=== PATIENT | male | born 1980 | race Caucasian/White ===

== ENCOUNTER 2020-03-01 21:46 | Inpatient (IN) | payer BC, OTHER ==
[2020-03-01] MEDS ORDERED: Morphine 4 MG/ML VIAL ONE (22:00)
[2020-03-01] MEDS ORDERED: Acetaminophen 325 MG TAB PO PRN (23:34)
[2020-03-01] MEDS ORDERED: cloNIDine 0.1 MG TAB PO PRN (23:34)
[2020-03-01] MEDS ORDERED: Promethazine HCl 12.5 MG in Sodium Chloride 0.9% 50 ML IVPB PRN (23:34)
[2020-03-01] MEDS ORDERED: Ondansetron PF 4 MG/2 ML Vial IVP PRN (23:34)
[2020-03-01] MEDS ORDERED: Guaifenesin DM 100-10/5 ML UDCUP PO PRN (23:34)
[2020-03-01] MEDS ORDERED: Labetalol HCl 100 MG/20 ML VIAL SLOW IVP PRN (23:34)
[2020-03-01] MEDS ORDERED: hydrALAZINE 20 MG/ML VIAL SLOW IVP PRN (23:34)
--- NOTE | 2020-03-01 23:44 | PDOC.HHP ---
Hospitalist HPI - History of Present Illness Tooth pain, jaw swelling History of Present Illness: Patient is a 39 year old male with no PMH sent here from [place] for 1 week of L lower mandible swelling and pain, patient reports tooth pain in L lower mandible x 6 days and jaw swelling x 4 days. He went to ED 3 days ago and got abx, then went to a dentist today Dr Nascimento and was not improving. Currently he can talk and manage secretions, denies SOB but cheek on L is so swollen that he can not open his mouth all the way. No distress. He had a CT scan in [place] and was diagnosed with odontogenic abscess, OMFS was consulted and agreed to place patient on schedule tomorrow, patient transferred here for further care. In ED, vitals with tachypnea, T 101.2. OMFS who talked with Ed was Dr Maier. Hospitalist ROS - Review of Systems Constitutional: reports: fever, chills. denies: sweats, weakness, malaise, other Eyes: denies: pain, vision change, conjunctivae inflammation, eyelid inflammation, redness, other ENT: reports: mouth pain, mouth swelling, other (tooth pain). denies: ear pain, ear discharge, nose pain, nose discharge, nose congestion, throat pain, throat swelling Respiratory: denies: cough, dry, shortness of breath, hemoptysis, SOB with excertion, pleuritic pain, sputum, wheezing, other Cardiovascular: denies: chest pain, palpitations, orthopnea, paroxysmal noc. dyspnea, edema, light headedness, other Gastrointestinal: denies: nausea, vomiting, abdominal pain, diarrhea, constipa tion, melena, hematochezia, other Genitourinary: denies: dysuria, frequency, incontinence, hematuria, retention, other Musculoskeletal: denies: neck pain, shoulder pain, arm pain, back pain, hand pain, leg pain, foot pain, other Skin: denies: rash, lesions, ronen, bruising, other Neurological: denies: weakness, numbness, incoordination, change in speech, confusion, seizures, other All other systems reviewed; all pertinent +/- noted in HPI/Subj - Medication Medications: reviewed, see ED documents Hospitalist History - Past Medical History Other Medical History: no significant pmh - Past Surgical History Past Surgical History: reports: no pertinent history - Family History Family History: reports: no pertinent history - Social History Smoking Status: Never smoker Alcohol: reports: Rare Drugs: reports: none - Exam General Appearance: NAD, awake alert Eye: PERRL, anicteric sclera ENT: normocephalic atraumatic, no oropharyngeal lesions, moist mucosa ENT - other findings: L cheek swollen, mouth minimally able to open, no distress Neck: supple, symmetric, no JVD, no thyromegaly, no lymphadenopathy, no carotid bruit Neck - other findings: managing secretions Heart: RRR, no murmur, no gallops, no rubs, normal peripheral pulses Respiratory: CTAB, no wheezes, no rales, no ronchi, normal chest expansion, no tachypnea, normal percussion Respiratory - other findings: no sob, normal WOB, no stridor Gastrointestinal: soft, non-tender, non-distended, normal bowel sounds, no palpable masses, no hepatomegaly, no splenomegaly, no bruit Extremities: no cyanosis, no clubbing, no edema Skin: normal turgor, no lesions, no rashes Neurological: cranial nerve grossly intact, normal sensation to touch, no weakness, no focal deficits, no new deficit Musculoskeletal: normal tone, normal strength, no muscle wasting Psychiatric: normal affect, normal behavior, A&O x 3 Hospitalist Results - Labs Additional comment: VITAL SIGNS Jelly Mar 01, 2020 22:48 EVA Boyd Daniel BP: 141/83 Pulse: 82 Resp: 20 Temp: 101.2 (Oral) Pain: 7 O2 sat: 99 on (Room Air) Time: 03/01/2020 22:48. ED documents, labs, imaging reports reviewed Hospitalist H&P A/P - Plan Plan: Patient is a 39 year old male with no PMH sent here from [place] for 1 week of L lower mandible swelling and pain. # posterior L mandicular molar abscess # sepsis - Tmax 101.2, WBC 13, source odontogenic infection patient reports tooth pain in L lower mandible x 6 days and jaw swelling x 4 days. He went to ED 3 days ago and got abx, then went to a dentist today Dr Nascimento and was not improving. Currently he can talk and manage secretions, denies SOB but cheek on L is so swollen that he can not open his mouth all the way. No distress. He had a CT scan in [place] and was diagnosed with odontogenic abscess, OMFS was consulted and agreed to place patient on schedule tomorrow, patient transferred here for further care. In ED, vitals with tachypnea, T 101.2. OMFS who talked with Ed was Dr Maier. - admit to floor - consult OMFS Dr Maier, discussed with him by ED - NPO - PRN pain meds - IVF - follow blood cultures drawn in [place] - start clindamycin (got vanc/zosyn in [place]) - speech consult # hyperglycemia - not dx w/ dm in past, may be newly diagnosed now - ssi - a1c DVT/GI prophylaxis full code
[2020-03-01] MEDS ORDERED: Sodium Chloride 0.9% 1,000 ML IV SCH (23:45)
[2020-03-01] MEDS ORDERED: Electrolyte Replacement Protoc 1 EACH EACH FS SCH (23:45)
[2020-03-01] MEDS ORDERED: Dextrose 5% in Water 1,000 ML IV PRN (23:52)
[2020-03-01] MEDS ORDERED: HumaLOG 300 UNITS/3 ML VIAL SC PRN (23:52)
[2020-03-01] MEDS ORDERED: Dextrose 50% Abboject 50 ML SYRINGE SLOW IVP PRN (23:52)
[2020-03-02] MEDS: HYDROcodone/Acetaminophen 5/325 mg Tablet PO PRN ×4 (00:02→18:14)
[2020-03-02] MEDS: Morphine 2 MG/ML VIAL SLOW IVP PRN ×6 (00:03→21:16)
[2020-03-02] MEDS ORDERED: Clindamycin/D5W 600 MG in Premix Bag 1 BAG IVPB SCH ×2 (01:00→06:00)
[2020-03-02] MEDS: Sodium Chloride 0.9% 1,000 ML IV SCH ×4 (01:01→21:18)
[2020-03-02 05:08] LABS: #Lymphocytes 0.6 thou/uL (1.20-3.40); #Monocytes 1.2 thou/uL (0.11-0.59); #Neutrophils 10.2 thou/uL (1.40-6.50); %Basophils 0.1 % (0.0-1.0); %Eosinophils 0.1 % (0.0-10.0); %Lymphocytes 5.1 % (21.0-51.0); %Monocytes 10.1 % (0.0-10.0); %Neutrophils 84.7 % (42.0-75.0); Hemoglobin 12.3 g/dL (14.0-18.0); Mean Corpuscular HGB CONC 35.4 g/dL (32.0-36.0); Mean Corpuscular Volume 93.2 fL (78.0-98.0); Mean Platelet Volume 8.5 fL (7.4-10.4); Platelet Count 181 thou/uL (130-400); RBC Distribution Width 10.9 % (11.5-14.5); Red Blood Cell (RBC) Count 3.72 mill/uL (4.70-6.10); White Blood Cell (WBC) Count 12.1 thou/uL (4.8-10.8)
[2020-03-02 05:29] LABS: ALT (SGPT) 25 U/L (8-55); AST (SGOT) 25 U/L (5-34); Albumin 3.5 g/dL (3.5-5.0); Alkaline Phosphatase 44 U/L (40-110); Bilirubin, Direct 0.4 mg/dL (0.1-0.3); Bilirubin, Total 0.8 mg/dL (0.2-1.2)
[2020-03-02 05:30] LABS: Anion Gap 13 mmol/L (10-20); BUN (Urea Nitrogen) 6 mg/dL (8.9-20.6); Calc. Creatinine Clearance 171 mL/min (70-130); Calcium 8.2 mg/dL (7.8-10.44); Carbon Dioxide 22 mmol/L (22-29); Chloride 105 mmol/L (98-107); Estimated GFR-MDRD Greater than 90; Glucose 126 mg/dL (70-105); Magnesium 1.7 mg/dL (1.6-2.6); Potassium 3.7 mmol/L (3.5-5.1); Sodium 136 mmol/L (136-145)
[2020-03-02] MEDS ORDERED: Magnesium 2 GM/50 ML 2 GM in Premix Bag 1 BAG IVPB SCH (06:30)
[2020-03-02] MEDS ORDERED: Famotidine 20 MG TAB PO SCH (09:00)
[2020-03-02] MEDS ORDERED: Polyethylene Glycol 3350 17 GM Packet PO SCH (09:00)
[2020-03-02] MEDS: Ampicillin/Sulbactam 3 GM in Sodium Chloride 0.9% 100 ML IVPB SCH ×3 (11:08→21:18)
[2020-03-02 12:06] LABS: SARS-CoV-2 MS2 Positive; SARS-CoV-2 N Gene Negative; SARS-CoV-2 S Gene Negative; SARS-CoV-2 by NAA Not Detected (NotDetected); SARS-CoV-2 orf1ab Negative
[2020-03-02] MEDS ORDERED: Fentanyl 100 MCG/2 ML VIAL ONE ×4 (13:25→16:06)
[2020-03-02 13:40] VITALS: BMI 25.7
[2020-03-02] MEDS ORDERED: Bupivacaine 0.25% HCL 30 ML VIAL ONE (13:49)
[2020-03-02] MEDS ORDERED: Lidocaine 1% w/Epinephrine 1:100K 20 ML VIAL ONE (13:49)
[2020-03-02] MEDS ORDERED: Hydrocortisone 1% Cream 30 GM TUBE ONE (13:49)
[2020-03-02] MEDS ORDERED: Chlorhexidine Gluconate 15 ML UDCUP SSP ONE (13:49)
--- NOTE | 2020-03-02 14:10 | PDOC.HOSPP ---
- Subjective Encounter Date: 03/02/20 Encounter Time: 10:00 Subjective: no overnight events. this morning, compalins of conitnued though improved left facial and submandibular pain, inability to open mouth, and extension of swelling down the neck. Pending I&D - Objective Vital Signs & Weight: Vital Signs (12 hours) Temp Pulse Resp BP Pulse Ox 03/02/20 11:04 98.8 F 82 14 117/75 98 03/02/20 07:14 100.2 F H 80 18 115/70 97 Weight Admit Weight 171 lb Weight 169 lb Result Diagrams: 03/02/20 04:54 03/02/20 04:54 Additional Labs: Accuchecks 03/02/20 03/02/20 11:12 06:57 POC Glucose 126 H 121 H Hospitalist ROS - Review of Systems Constitutional: reports: chills, sweats ENT: reports: mouth pain, mouth swelling Respiratory: denies: cough, dry, shortness of breath Cardiovascular: denies: chest pain, palpitations, orthopnea Gastrointestinal: denies: nausea, vomiting, abdominal pain - Medication Medications: Active Medications Generic Name Dose Route Start Last Admin Trade Name Freq PRN Reason Stop Dose Admin Acetaminophen 650 mg 03/01/20 23:34 03/02/20 07:37 Acetaminophen 325 Mg Tab PO 650 mg Q4H PRN Administration Headache/Fever/Mild Pain (1-3) Hydrocodone Bitart/Acetaminophen 1 tab 03/01/20 23:34 03/02/20 09:43 Hydrocodone/Acetaminophen 5/325 Mg Tablet PO 1 tab Q4H PRN Administration Moderate Pain (4-6) Famotidine 20 mg 03/02/20 09:00 03/02/20 10:52 Famotidine 20 Mg Tab PO Not Given BID CRESENCIO Sodium Chloride 1,000 mls @ 125 mls/hr 03/02/20 00:15 03/02/20 10:51 Normal Saline 0.9% IV Not Given .Q8H CRESENCIO Ampicillin Sodium/Sulbactam 100 mls @ 200 mls/hr 03/02/20 09:00 03/02/20 11:08 Sodium 3 gm/ Sodium Chloride IVPB 100 mls 0300,0900,1500,2100 CRESENCIO Administration Morphine Sulfate 2 mg 03/01/20 23:34 03/02/20 09:43 Morphine 2 Mg/Ml Vial SLOW IVP 2 mg Q3H PRN Administration Moderate to Severe Pain (4-10) Ondansetron HCl 4 mg 03/01/20 23:34 03/02/20 06:04 Ondansetron Pf 4 Mg/2 Ml Vial IVP 4 mg Q6H PRN Administration Nausea/Vomiting, use 1st Polyethylene Glycol 17 gm 03/02/20 09:00 03/02/20 09:24 Polyethylene Glycol 3350 17 Gm Packet PO Not Given DAILY CRESENCIO Sodium Chloride 10 ml 03/02/20 09:00 03/02/20 10:52 Flush - Normal Saline 10 Ml Syringe IVF Not Given Q12HR CRESENCIO - Exam General Appearance: NAD, awake alert ENT: moist mucosa ENT - other findings: cant open mouth even with tounge deperssor Neck: no JVD Neck - other findings: left mandibular and submandibular swelling and submandibular swelling Heart: RRR, no murmur, no gallops, no rubs Respiratory: CTAB, no wheezes, no rales, no ronchi Gastrointestinal: soft, non-tender, non-distended, normal bowel sounds Extremities: no edema Psychiatric: normal affect, normal behavior, A&O x 3 Hosp A/P - Plan #molar periodontal abscess -continue unasyn -I&D pending -if improves by tomorrow, will change to oral and possibly discharge full code GI PPx: no Ix DVT PPx: lovenox
[2020-03-02] MEDS ORDERED: Succinylcholine Chloride 20 MG/ML 10 ml SYRINGE FS ONE (14:11)
[2020-03-02] MEDS ORDERED: PROPOFOL 200 MG/20 ML VIAL ONE (14:11)
[2020-03-02] MEDS ORDERED: Dexamethasone 20 MG/5 ML VIAL ONE (14:11)
[2020-03-02] MEDS ORDERED: Lidocaine 1% PF 5 ML VIAL ONE (14:11)
[2020-03-02] MEDS ORDERED: Rocuronium Bromide 10 MG/ML (10ML VIAL) ONE (14:11)
[2020-03-02] MEDS ORDERED: Ondansetron PF 4 MG/2 ML Vial ONE (14:11)
[2020-03-02] MEDS ORDERED: Glycopyrrolate 0.2 MG/ML 5 ML SYRINGE ONE (14:11)
[2020-03-02] MEDS ORDERED: Labetalol HCl 100 MG/20 ML VIAL ONE (15:25)
[2020-03-02] MEDS ORDERED: Morphine 4 MG/ML VIAL ONE (16:15)
--- NOTE | 2020-03-02 19:59 | CON ---
DATE OF CONSULTATION: 03/02/2020 HISTORY OF PRESENT ILLNESS: This is a 39-year-old male with reported approximately 1-week history of left lower jaw pain and swelling. He reports that he went to an outside ER approximately 3 days ago, where prescription antibiotics was administered, for which the patient saw no improvement. He saw his dentist yesterday, who recommended reporting to the emergency room due to the severity of the patient's infection. CT scan at [facility] revealed odontogenic abscess associated with tooth #18 and left posterior mandible. The patient was transferred to [facility] for surgical intervention, for which Oral Surgery was consulted. PAST MEDICAL HISTORY: Negative. MEDICATIONS: None. SOCIAL HISTORY: Negative for tobacco. Rare alcohol. Denies recreational drugs. PAST SURGICAL HISTORY: Reports incision and drainage of staph infection of the knee. REVIEW OF SYSTEMS: The patient reports a 10/10 pain associated with his left neck and jaw, difficulty swallowing due to pain, difficulty opening his mouth. Otherwise, review of symptoms within normal limits. PHYSICAL EXAMINATION: VITAL SIGNS: Stable. Blood pressure 136/75, pulse 82, respirations 18, temperature max is 101.2, and oxygen saturation 99% on room air. GENERAL: The patient is sitting in bed, no acute distress. Awake, alert, oriented. HEENT: Eyes; pupils are equal, round, and reactive to light. Extraocular movements intact. Visual acuity grossly intact. Ears and nose within normal limits. No acute findings. Intraoral exam limited secondary to the patient trismus and pain. Tenderness to palpation along the left mandibular vestibule. Floor of mouth cannot be assessed, but the patient reports his tongue has full range of motion. The floor of mouth is soft. There is palpable edema along the lateral aspect of the left mandibular body and ramus. Mild induration in the inferior border. NECK: His neck inferiorly on the left side is supple with no erythema. CT Neck: Large 3.5cm fluid collection within the left biology internship and submandibular spaces associated with carious tooth #18 which has a large periapical radiolucency with perforation through the lingual cortex ASSESSMENT: This is a 39-year-old male with odontogenic abscess associated with tooth #18. PLAN: The patient will be taken to the operating room for extraction of indicated teeth and incision and drainage of the abscess under general anesthesia. The risks, benefits, and alternatives of the procedure were discussed with the patient in detail. Questions were sought and answered. Informed consent was obtained. Continue IV antibiotics and supportive therapy and follow cultures that will be obtained during the surgery. Job ID: [id number] MTDD
--- NOTE | 2020-03-02 20:41 | OP ---
DATE OF PROCEDURE: 03/02/2020 PREOPERATIVE DIAGNOSES: 1. Left multi needle machine operator space abscess. 2. Left submandibular abscess. 3. Dental caries of teeth #15 and #18. POSTOPERATIVE DIAGNOSES: 1. Left multi needle machine operator space abscess. 2. Left submandibular abscess. 3. Dental caries of teeth #15 and #18. PROCEDURES PERFORMED: 1. Incision and drainage of left multi needle machine operator and submandibular spaces. 2. Surgical extraction of tooth #15. 3. Simple extraction of tooth #18. ANESTHESIA: General nasoendotracheal anesthesia. INDICATIONS FOR PROCEDURE: This is a 39-year-old male with approximately 1-week history of left-sided jaw pain and facial swelling for which a CT scan revealed odontogenic abscess and a mass until ER for which the patient was transferred to [place] for surgical and medical intervention. DESCRIPTION OF PROCEDURE: The patient was met in the preoperative holding area. Risks, benefits, alternatives of procedure were discussed in detail. Questions were sought and answered. Informed consent was obtained. The patient was transferred to the operating room by Anesthesia Nursing to the OR table, where a safety belt was secured. ASA monitors were attached and the patient was noted to have stable vital signs. IV induction by Anesthesia with nasoendotracheal intubation x1 without complication. The nasoendotracheal tube was secured in a standard head wrap fashion. The patient was prepped and draped in a standard fashion and a time-out was performed. The procedure began by thoroughly suctioning the oropharynx and a moistened Ray[place]John[place] throat pack was placed. Peridex mouth rinse was performed. A 15 blade was used for a sulcular incision around teeth #18 and #19. Roots of #18 were sectioned with a 703 bur and elevator extraction was performed of tooth #18. Then, a 15 blade was used for 1.5 cm horizontal incision below the mucogingival junction in the left posterior mandible with subperiosteal dissection delivering extensive purulence from the left multi needle machine operator space. Further dissection below the inferior border revealed additional purulence from the submandibular space. Subperiosteal dissection along the lingual aspect of the mandible delivered no purulence. Copious irrigation of the wound was performed with normal saline. A quarter-inch Jennie drain was placed and secured with one 3-0 nylon suture. 703 was used to section the roots of carious tooth #15 and elevated with ostectomy and elevator and rongeur extraction was performed of tooth #15. The oropharynx was irrigated and thoroughly suctioned. The Ray-Johnathon throat pack was removed. A gauze pack was placed for hemostasis and this concluded the procedure. The patient was extubated in the room, returned to PACU in stable condition. FLUID: See Anesthesia records. ESTIMATED BLOOD LOSS: 30 mL. DRAINS: Left multi needle machine operator space quarter-inch [place]. SPECIMENS: Wound cultures were sent for culture and sensitivity. IMPLANTS: None. COMPLICATIONS: None. COUNTS: Needle and sponge count verified as correct. Job ID: [id number]
[2020-03-02] MEDS: Chlorhexidine Gluconate 15 ML UDCUP SSP SCH (21:19)
[2020-03-02] MEDS: Enoxaparin Sodium 40 MG/0.4 ML SYRINGE SC SCH (21:19)
[2020-03-03] MEDS: HYDROcodone/Acetaminophen 5/325 mg Tablet PO PRN ×5 (00:43→21:07)
[2020-03-03] MEDS: Morphine 2 MG/ML VIAL SLOW IVP PRN ×2 (00:44→03:43)
[2020-03-03] MEDS: Ampicillin/Sulbactam 3 GM in Sodium Chloride 0.9% 100 ML IVPB SCH ×4 (03:36→20:02)
--- NOTE | 2020-03-03 08:38 | PRG ---
DATE OF SERVICE: 03/03/2020 SUBJECTIVE: The patient is sitting in bed comfortably watching TV. Reports significant improvement in jaw pain, swallowing, and mouth opening. The patient states "I feel much better today." Pain is controlled with medications and tolerating p.o. intake. OBJECTIVE: VITAL SIGNS: Temperature 97.9, pulse 76, respirations 14, oxygen saturation 97% on room air, blood pressure 105/66. GENERAL: The patient is in no acute distress. HEENT: Improvement in left buccal edema. The patient's interincisal opening has significantly improved approximately 20 mm today. Tongue, full range of motion. Floor of mouth is soft. [place] drain is intact. No purulent secretions from the intraoral wound. On palpation, extraction site is hemostatic. LABORATORY DATA: No new labs. Cultures pending. ASSESSMENT: Postop day #1, status post incision and drainage of left catalyst operator space and submandibular abscess with extraction of teeth #15 and #18. The patient is doing very well clinically. PLAN: Continue antibiotics and supportive therapy. With the patient's continued improvement, likely remove drain tomorrow and potentially ready for discharge to home. We will continue to follow. Job ID: [id number]
[2020-03-03] MEDS: Chlorhexidine Gluconate 15 ML UDCUP SSP SCH ×2 (08:53→20:02)
[2020-03-03] MEDS: Sodium Chloride 0.9% 1,000 ML IV SCH ×2 (08:55→16:17)
--- NOTE | 2020-03-03 10:10 | PDOC.HOSPP ---
- Subjective Encounter Date: 03/03/20 Encounter Time: 10:00 Subjective: overnight, had extraction of molar and drainage of abscess. This morning, feeling better, pain resolved, PO tolerant. Has no complaints. - Objective Vital Signs & Weight: Vital Signs (12 hours) Temp Pulse Resp BP Pulse Ox 03/03/20 07:52 97.9 F 76 14 105/66 97 03/03/20 04:38 97.9 F 87 16 109/69 96 03/02/20 23:32 98.3 F 76 17 104/59 L 97 Weight Admit Weight 171 lb Weight 169 lb I&O: 03/02/20 03/03/20 03/04/20 06:59 06:59 06:59 Intake Total 3900 Output Total 2100 Balance 1800 Result Diagrams: 03/02/20 04:54 03/02/20 04:54 Additional Labs: Accuchecks 03/03/20 03/02/20 03/02/20 05:50 23:43 18:12 POC Glucose 121 H 140 H 169 H 03/02/20 11:12 POC Glucose 126 H Hospitalist ROS - Review of Systems Constitutional: denies: chills, sweats ENT: reports: mouth pain, mouth swelling. denies: throat pain, throat swelling Respiratory: denies: cough, dry, shortness of breath Cardiovascular: denies: chest pain, palpitations Gastrointestinal: denies: nausea, vomiting - Medication Medications: Active Medications Generic Name Dose Route Start Last Admin Trade Name Freq PRN Reason Stop Dose Admin Acetaminophen 650 mg 03/01/20 23:34 03/02/20 07:37 Acetaminophen 325 Mg Tab PO 650 mg Q4H PRN Administration Headache/Fever/Mild Pain (1-3) Hydrocodone Bitart/Acetaminophen 1 tab 03/01/20 23:34 03/03/20 09:05 Hydrocodone/Acetaminophen 5/325 Mg Tablet PO 1 tab Q4H PRN Administration Moderate Pain (4-6) Chlorhexidine Gluconate 15 ml 03/02/20 21:00 03/03/20 08:53 Chlorhexidine Gluconate 15 Ml Udcup SSP 15 ml BID CRESENCIO Administration Enoxaparin Sodium 40 mg 03/02/20 21:00 03/02/20 21:19 Enoxaparin Sodium 40 Mg/0.4 Ml Syringe SC 40 mg 2100 CRESENCIO Administration Sodium Chloride 1,000 mls @ 125 mls/hr 03/02/20 00:15 03/03/20 08:55 Normal Saline 0.9% IV 1,000 mls .Q8H CRESENCIO Administration Ampicillin Sodium/Sulbactam 100 mls @ 200 mls/hr 03/02/20 09:00 03/03/20 08:53 Sodium 3 gm/ Sodium Chloride IVPB 100 mls 0300,0900,1500,2100 CRESENCIO Administration Morphine Sulfate 2 mg 03/01/20 23:34 03/03/20 03:43 Morphine 2 Mg/Ml Vial SLOW IVP 2 mg Q3H PRN Administration Moderate to Severe Pain (4-10) Ondansetron HCl 4 mg 03/01/20 23:34 03/02/20 06:04 Ondansetron Pf 4 Mg/2 Ml Vial IVP 4 mg Q6H PRN Administration Nausea/Vomiting, use 1st Sodium Chloride 10 ml 03/02/20 09:00 03/03/20 08:54 Flush - Normal Saline 10 Ml Syringe IVF 10 ml Q12HR CRESENCIO Administration - Exam General Appearance: NAD, awake alert ENT - other findings: right facial swelling improved. Able to open mouth unlike yesterday Neck: no JVD Heart: RRR, no murmur, no gallops, no rubs Respiratory: CTAB, no wheezes, no rales, no ronchi Gastrointestinal: soft, non-tender, non-distended, normal bowel sounds Extremities: no edema Psychiatric: normal affect, normal behavior, A&O x 3 Hosp A/P - Plan #molar periodontal abscess -POD 1 s/p I&D; drain in place -continue unasyn -pending culture; change to oral meds (03/04), possible DC depending on drainage full code GI PPx: no Ix DVT PPx: lovenox
[2020-03-03] MEDS: Enoxaparin Sodium 40 MG/0.4 ML SYRINGE SC SCH (20:02)
[2020-03-03] MEDS: Famotidine 20 MG TAB PO SCH (20:16)
[2020-03-04] MEDS: HYDROcodone/Acetaminophen 5/325 mg Tablet PO PRN ×4 (01:24→13:02)
[2020-03-04] MEDS: Sodium Chloride 0.9% 1,000 ML IV SCH (01:25)
[2020-03-04] MEDS: Ampicillin/Sulbactam 3 GM in Sodium Chloride 0.9% 100 ML IVPB SCH ×2 (03:58→08:55)
[2020-03-04 05:28] LABS: #Eosinphils 0.1 thou/uL (0.0-0.7); #Lymphocytes 1.8 thou/uL (1.20-3.40); #Monocytes 0.7 thou/uL (0.11-0.59); #Neutrophils 4.2 thou/uL (1.40-6.50); %Basophils 0.2 % (0.0-1.0); %Eosinophils 0.8 % (0.0-10.0); %Monocytes 10.3 % (0.0-10.0); %Neutrophils 62.7 % (42.0-75.0); Hemoglobin 13.4 g/dL (14.0-18.0); Mean Corpuscular HGB CONC 35.6 g/dL (32.0-36.0); Mean Corpuscular Hemoglobin 33.1 pg (27.0-31.0); Mean Corpuscular Volume 93.2 fL (78.0-98.0); Mean Platelet Volume 8.4 fL (7.4-10.4); Platelet Count 266 thou/uL (130-400); RBC Distribution Width 11.1 % (11.5-14.5); Red Blood Cell (RBC) Count 4.04 mill/uL (4.70-6.10); White Blood Cell (WBC) Count 6.7 thou/uL (4.8-10.8)
[2020-03-04] MEDS: Famotidine 20 MG TAB PO SCH (08:55)
[2020-03-04] MEDS: Chlorhexidine Gluconate 15 ML UDCUP SSP SCH (08:56)
[2020-03-04 15:40] VITALS: BP 120/79; TEMP 98.6
== END 2020-03-04 16:10 | disposition home or self-care (01) | DRG 854 ==
LOC: ERS 21:46 → SURG B 22:59
PROVIDERS: ADMIT Internal Medicine; ATTEND Internal Medicine
PROC: 0J910ZZ Drainage of Face Subcutaneous Tissue and Fascia, Open Approach (ICD-10-PCS; principal; 2020-03-02)
PROC: 0CDXXZ1 Extraction of Lower Tooth, Multiple, External Approach (ICD-10-PCS; 2020-03-02)
DX: A41.9 Sepsis, unspecified organism (principal); K12.2 Cellulitis and abscess of mouth; M27.2 Inflammatory conditions of jaws; Z20.828 Contact with and (suspected) exposure to other viral communicable diseases; R25.2 Cramp and spasm; R73.9 Hyperglycemia, unspecified; K02.9 Dental caries, unspecified
CPT/HCPCS: 36415; 36416; 80048; 80076; 83735; 85025; 87070; 87076; 87205; 87635; 96374; J0295; J1100; J1650; J2270; J2405; J2704; J3010; J3475; J3490; S0020; U0003